=== PATIENT | female | born 1930 | race Caucasian/White ===

== ENCOUNTER 2016-05-20 08:41 | Observation (INO) | payer MEDICARE, OTHER ==
[2016-05-20] MEDS ORDERED: ASPIRIN 81 MG TABLET, CHEWABLE PO ONE (08:43)
[2016-05-20] MEDS ORDERED: DIAZEPAM INJ 10 MG/2 ML DISP.SYRIN ONE (08:56)
[2016-05-20] MEDS ORDERED: DIAZEPAM INJ 10 MG/2 ML DISP.SYRIN IV ONE (08:56)
--- NOTE | 2016-05-20 08:56 | ER Document Report ---
ED General - General Stated Complaint: CHEST PAIN Mode of Arrival: Medic Information source: Patient, Relative, Outside Facility Records Notes: 85-year-old female presents from care facility initially with concerns of chest pain when she arrives here no set is completely body aches muscle spasms. Patient denies any shortness of breath difficult to breathing. Admits to decreased hydration - HPI Onset: This morning Onset/Duration: Sudden Quality of pain: Cramping Severity: Mild Pain Level: 1 Associated symptoms: Body/muscle aches Exacerbated by: Denies Relieved by: Denies Similar symptoms previously: No Recently seen / treated by doctor: No - Related Data Allergies/Adverse Reactions: Penicillins Allergy (Verified 05/20/16 09:38) Sulfa (Sulfonamide Antibiotics) Allergy (Verified 05/20/16 09:38) Past Medical History - Social History Smoking Status: Never Smoker Cigarette use (# per day): No Chew tobacco use (# tins/day): No Smoking Education Provided: No Family History: Reviewed & Not Pertinent Review of Systems - Review of Systems Notes: REVIEW OF SYSTEMS: CONSTITUTIONAL : Denies fever, chills, or sweats. Denies recent illness. EENT: Denies eye, ear, throat, or mouth pain or symptoms. Denies nasal or sinus congestion or discharge. Denies throat, tongue, or mouth swelling or difficulty swallowing. CARDIOVASCULAR: Denies chest pain. Denies palpitations or racing or irregular heart beat. Denies ankle edema. RESPIRATORY: Denies cough, cold, or chest congestion. Denies shortness of breath, difficulty breathing, or wheezing. GASTROINTESTINAL: Denies abdominal pain or distention. Denies nausea, vomiting , or diarrhea. Denies blood in vomitus, stools, or per rectum. Denies black, tarry stools. Denies constipation. GENITOURINARY: Denies difficulty urinating, painful urination, burning, frequency, blood in urine, or discharge. FEMALE GENITOURINARY: Denies vaginal bleeding, heavy or abnormal periods, irregular periods. Denies vaginal discharge or odor. MUSCULOSKELETAL: Admits to body aches muscle aches SKIN: Denies rash, lesions or sores. HEMATOLOGIC : Denies easy bruising or bleeding. LYMPHATIC: Denies swollen, enlarged glands. NEUROLOGICAL: Denies confusion or altered mental status. Denies passing out or loss of consciousness. Denies dizziness or lightheadedness. Denies headache. Denies weakness or paralysis or loss of use of either side. Denies problems with gait or speech. Denies sensory loss, numbness, or tingling. Denies seizures. PSYCHIATRIC: Denies anxiety or stress. Denies depression, suicidal ideation, or homicidal ideation. ALL OTHER SYSTEMS REVIEWED AND NEGATIVE. Dictation was performed using [employer] voice recognition software PHYSICAL EXAMINATION: GENERAL: Well-appearing, well-nourished and in no acute distress. HEAD: Atraumatic, normocephalic. EYES: Pupils equal round and reactive to light, extraocular movements intact, conjunctiva are normal. ENT: Nares patent, oropharynx clear without exudates. Moist mucous membranes. NECK: Normal range of motion, supple without lymphadenopathy LUNGS: Breath sounds clear to auscultation bilaterally and equal. No wheezes rales or rhonchi. HEART: Regular rate and rhythm without murmurs ABDOMEN: Soft, nontender, nondistended abdomen. No guarding, no rebound. No masses appreciated. Female : deferred Musculoskeletal: Patient has obvious spasms of the left calf gastrocnemius region NEUROLOGICAL: Cranial nerves grossly intact. Normal speech, normal gait. Normal sensory, motor exams PSYCH: Normal mood, normal affect. SKIN: Warm, Dry, normal turgor, no rashes or lesions noted. Physical Exam - Vital signs Vitals: Temp Pulse Resp BP Pulse Ox 97.8 F 61 20 140/60 H 96 05/20/16 08:46 05/20/16 08:46 05/20/16 08:46 05/20/16 08:46 05/20/16 08:46 Course - Re-evaluation Re-evalutation: 05/20/16 08:56 Initial concerns for cardiac however it appears to be all musculoskeletal probable hypokalemia versus muscle spasms, patient will be given Valium 05/20/16 12:07 cardiac enzymes x1 negative, will admit for acs rule out and evalaution of leukocytosis - Vital Signs Vital signs: Temp Pulse Resp BP Pulse Ox 97.8 F 61 20 140/60 H 100 05/20/16 08:46 05/20/16 08:46 05/20/16 08:46 05/20/16 08:46 05/20/16 09:18 - Laboratory Result Diagrams: 05/20/16 09:14 05/20/16 09:14 Laboratory results interpreted by me: 05/20/16 05/20/16 09:14 09:14 WBC 17.5 H Hct 47.2 H MCHC 31.5 L RDW 14.2 H Seg Neuts % (Manual) 93 H Lymphocytes % (Manual) 2 L Abs Neuts (Manual) 16.2 H Abs Lymphs (Manual) 0.4 L BUN 22 H Est GFR (Non-Af Amer) 54 L Glucose 116 H Total Bilirubin 1.4 H Alkaline Phosphatase 133 H - Diagnostic Test Radiology reviewed: Image reviewed, Reports reviewed - EKG Interpretation by Me EKG shows normal: Sinus rhythm, [place], Intervals, QRS Complexes Discharge - Discharge Clinical Impression: Chest pain Qualifiers: Chest pain type: unspecified Qualified Code(s): R07.9 - Chest pain, unspecified Leukocytosis Qualifiers: Leukocytosis type: unspecified Qualified Code(s): D72.829 - Elevated white blood cell count, unspecified Condition: Stable Disposition: ADMITTED OBSERVATION Admitting Provider: Hospitalist Unit Admitted: Telemetry Referrals: LASHAUN CAMPBELL MD [Primary Care Provider] - Follow up as needed
[2016-05-20 09:31] LABS: HEMATOCRIT 47.2 % (36.0-47.0); HEMOGLOBIN 14.9 g/dL (12.0-15.5); HGB HCT DIFFERENCE -2.5; MEAN CORPUSCULAR HEMOGLOBIN 30.2 pg (27.0-33.4); MEAN CORPUSCULAR HGB CONC 31.5 g/dL (32.0-36.0); MEAN CORPUSCULAR VOLUME 96 fl (80-97); RED BLOOD COUNT 4.93 10^6/uL (3.72-5.28); RED CELL DISTRIBUTION WIDTH 14.2 % (11.5-14.0); WHITE BLOOD COUNT 17.5 10^3/uL (4.0-10.5)
[2016-05-20 09:41] LABS: ALANINE AMINOTRANSFERASE 26 U/L (9-52); ALBUMIN 4.7 g/dL (3.5-5.0); ALKALINE PHOSPHATASE 133 U/L (38-126); ANION GAP 16 (5-19); ASPARTATE AMINO TRANSFERASE 33 U/L (14-36); BILIRUBIN,TOTAL 1.4 mg/dL (0.2-1.3); BLOOD UREA NITROGEN 22 mg/dL (7-20); CARBON DIOXIDE 22 mmol/L (22-30); CHLORIDE 103 mmol/L (98-107); CREATINE KINASE 72 U/L (30-135); CREATININE RESULT 0.97 mg/dL (0.52-1.25); GLUCOSE 116 mg/dL (75-110); POTASSIUM 4.7 mmol/L (3.6-5.0); SODIUM 140.9 mmol/L (137-145); TOTAL PROTEIN 7.6 g/dL (6.3-8.2)
[2016-05-20 09:52] LABS: CREATINE KINASE MB 2.32 ng/mL (<4.55)
[2016-05-20 09:58] LABS: TROPONIN I < 0.012 ng/mL
[2016-05-20 10:05] LABS: LYMPHOCYTES % (MANUAL) 2 % (13-45); TOTAL CELLS COUNTED 100
[2016-05-20 10:06] LABS: BASOPHILS % (MANUAL) 0 % (0-2); EOSINOPHILS % (MANUAL) 0 % (0-6); OVALOCYTES SLIGHT; POIKILOCYTOSIS SLIGHT
[2016-05-20 10:07] LABS: POLYCHROMASIA SLIGHT; TOXIC GRANULATION SLIGHT
[2016-05-20] MEDS ORDERED: CEFTRIAXONE INJ 1000 MG VIAL IV ONE (12:06)
[2016-05-20 12:16] LABS: APPEARANCE,URINE TURBID; BILIRUBIN,URINE NEGATIVE (NEGATIVE); GLUCOSE, URINE NEGATIVE (NEGATIVE); KETONES,URINE NEGATIVE (NEGATIVE); LEUKOCYTE ESTERASE,URINE NEGATIVE (NEGATIVE); NITRITE,URINE NEGATIVE (NEGATIVE); PROTEIN,URINE 100 mg/dL (NEGATIVE); URINE SPECIFIC GRAVITY 1.021; UROBILINOGEN,URINE NEGATIVE mg/dL (<2.0)
[2016-05-20] MEDS ORDERED: CEFTRIAXONE 1 GM/D5W RTU 1 GM/50 ML RTUPB IV ONE (12:43)
[2016-05-20] MEDS ORDERED: LORAZEPAM 0.5 MG TABLET PO PRN (14:14)
[2016-05-20] MEDS ORDERED: ENOXAPARIN SODIUM INJ 30 MG/0.3 ML DISP.SYRIN SUBCUT ONE (14:30)
--- NOTE | 2016-05-20 14:36 | PDOC H&P ---
History of Present Illness Admission Date/PCP: 05/20/16 12:14 LASHAUN CAMPBELL MD Patient complains of: chest pain History of Present Illness: ROLF VALENZUELA is a 85 year old female resident at [facility] was brought to the ED after she complained of chest pain Patient has dementia and has no recollection of anything She denies any SOB or chest pain Daughter present at bedside was not present at the time Patient was evaluated in the ED ; She had a normal EKG and normal cardiac [place] [id number] with a shift to the left without fever or focus of infection Patient was admitted to telemetry and received Ceftriaxone IV Past Medical History Cardiac Medical History: Reports: Hypertension GI Medical History: Reports: Gastroesophageal Reflux Disease Psychiatric Medical History: Reports: Depression, Other - dementia Social History Smoking Status: Never Smoker - Advance Directive Resuscitation Status: Do Not Resuscitate Surrogate healthcare decision maker:: daughter Ann Schultz Family History Parental Family History Reviewed: No Children Family History Reviewed: No Sibling(s) Family History Reviewed.: No Medication/Allergy Home Medications: Biotin 1,000 mcg PO DAILY 05/20/16 Celecoxib [Celebrex 200 mg Capsule] 200 mg PO DAILY 05/20/16 Cholecalciferol (Vitamin D3) [Vitamin D3 1000 Unit Tablet] 1,000 units PO DAILY 05/20/16 Cyanocobalamin (Vitamin B-12) [Vitamin B-12 1000 mcg Tablet] 1,000 mcg PO DAILY 05/20/16 Dimethicone [Cerave] See Protocol TOP DAILY 05/20/16 Donepezil HCl [Aricept] 10 mg PO DAILY 05/20/16 Escitalopram Oxalate [Lexapro 10 mg Tablet] 10 mg PO DAILY 05/20/16 Ketotifen Fumarate [Refresh] 1 drop OU QID 05/20/16 Lansoprazole [Prevacid] 30 mg PO BID 05/20/16 Levothyroxine Sodium [Tirosint] 88 mcg PO QAM 05/20/16 Lisinopril [Prinivil 5 mg Tablet] 5 mg PO DAILY 05/20/16 Loratadine [Claritin 10 mg Tablet] 10 mg PO DAILY 05/20/16 Lorazepam [Ativan 0.5 mg Tablet] 0.5 mg PO Q12HP PRN 05/20/16 Mag Hydrox/Al Hydrox/Simeth [Maalox Plus Susp 30 Udcup] 30 ml PO Q6HP PRN Memantine HCl [Namenda Xr] 28 mg PO TID 05/20/16 Mineral Oil/Petrolatum,White [Artificial Tears Eye Ointment] 1 strip OU BID Simethicone [Mylanta] 0 mg PO DAILY 05/20/16 Simethicone [Mylanta] 0 mg PO DAILY 05/20/16 Tramadol HCl 50 mg PO BID 05/20/16 Allergies/Adverse Reactions: Penicillins Allergy (Verified 05/20/16 09:38) Sulfa (Sulfonamide Antibiotics) Allergy (Verified 05/20/16 09:38) Review of Systems ROS unobtainable: Due to mental status - severe dementia does not answer questions appropriatly Physical Exam Vital Signs: Temp Pulse Resp BP Pulse Ox 98.6 F 116 H 21 H 127/80 H 99 05/20/16 13:23 05/20/16 13:23 05/20/16 14:01 05/20/16 14:01 05/20/16 14:01 General appearance: PRESENT: no acute distress, well-developed, well-nourished Head exam: PRESENT: atraumatic, normocephalic Eye exam: PRESENT: conjunctiva pink, EOMI, PERRLA. ABSENT: scleral icterus Ear exam: PRESENT: normal external ear exam Mouth exam: PRESENT: moist, tongue midline Neck exam: ABSENT: carotid bruit, JVD, lymphadenopathy, thyromegaly Respiratory exam: PRESENT: clear to auscultation ronine. ABSENT: rales, rhonchi, wheezes Cardiovascular exam: PRESENT: RRR. ABSENT: diastolic murmur, rubs, systolic murmur Pulses: PRESENT: normal dorsalis pedis pul Vascular exam: PRESENT: normal capillary refill GI/Abdominal exam: PRESENT: normal bowel sounds, soft. ABSENT: distended, guarding, mass, organolmegaly, rebound, tenderness Rectal exam: PRESENT: deferred Extremities exam: PRESENT: full ROM. ABSENT: calf tenderness, clubbing, pedal edema Neurological exam: PRESENT: awake, CN II-XII grossly intact. ABSENT: oriented to place, oriented to time, motor sensory deficit Psychiatric exam: PRESENT: appropriate affect, normal mood. ABSENT: homicidal ideation, suicidal ideation Skin exam: PRESENT: dry, intact, warm. ABSENT: cyanosis, rash Results Impressions: Chest X-Ray 05/20/16 08:44 IMPRESSION: NO ACUTE RADIOGRAPHIC FINDING IN THE CHEST. Assessment & Plan - Diagnosis (1) Dementia Qualifiers: Dementia type: unspecified type Dementia behavioral disturbance: without behavioral disturbance Qualified Code(s): F03.90 - Unspecified dementia without behavioral disturbance Is this a current diagnosis for this admission?: YesPlan: continue present meds will have sitter if patient becomes agitated later (2) Hypertension Qualifiers: Hypertension type: essential hypertension Qualified Code(s): I10 - Essential (primary) hypertension Is this a current diagnosis for this admission?: YesPlan: controlled continue lisinopril (3) Chest pain Qualifiers: Chest pain type: unspecified Qualified Code(s): R07.9 - Chest pain, unspecified Is this a current diagnosis for this admission?: YesPlan: monitor overnite i telemetry unit serial enzymes repeat EKG in am - Time Time Spent: 50 to 70 Minutes - Inpatient Certification Based on my medical assessment, after consideration of the patient's comorbidities, presenting symptoms, or acuity I expect that the services needed warrant INPATIENT care.: No I certify that my determination is in accordance with my understanding of Medicare's requirements for reasonable and necessary INPATIENT services [42 CFR 412.3e].: Yes
[2016-05-20] MEDS ORDERED: (PENDING PHARMACY ID) (Ketotifen Fumarate [Refresh] 1 DROP) OU SCH ×2 (16:29→18:00)
[2016-05-20] MEDS ORDERED: (PENDING PHARMACY ID) (Memantine Hcl [Namenda Xr] 28 MG) PO SCH (16:29)
[2016-05-20] MEDS ORDERED: BIOTIN 1000 MCG PO SCH (16:29)
[2016-05-20] MEDS ORDERED: DONEPEZIL HCL 5 MG TABLET PO SCH (18:00)
[2016-05-20] MEDS ORDERED: (PENDING PHARMACY ID) (Lansoprazole [Prevacid] 30 MG) PO SCH (18:00)
[2016-05-20] MEDS ORDERED: CHOLECALCIFEROL (D3) 1,000 UNIT TABLET PO SCH (18:00)
[2016-05-20] MEDS ORDERED: LISINOPRIL 5 MG TABLET PO SCH (18:00)
[2016-05-20] MEDS ORDERED: ESCITALOPRAM OXALATE 10 MG TABLET PO SCH (18:00)
[2016-05-20] MEDS ORDERED: LORATADINE 10 MG TABLET PO SCH (18:00)
[2016-05-20] MEDS ORDERED: CYANOCOBALAMIN (VITAMIN B-12) 1,000 MCG TABLET PO SCH (18:00)
[2016-05-20] MEDS ORDERED: CELECOXIB 200 MG CAPSULE PO SCH (18:00)
[2016-05-20] MEDS: LANSOPRAZOLE 30 MG TAB.RAP.DR PO SCH (18:13)
--- NOTE | 2016-05-20 18:59 | EKG REPORT ---
SEVERITY:- ABNORMAL ECG - SINUS RHYTHM BORDERLINE INFERIOR Q WAVES ABNORMAL T, CONSIDER ISCHEMIA, LATERAL LEADS : Confirmed by: Yo West MD 20-May-2016 18:58:12
[2016-05-20] MEDS ORDERED: ONDANSETRON HCL INJ/PF 4 MG/2 ML SDV IV PRN (20:36)
[2016-05-20] MEDS ORDERED: RISPERIDONE 0.5 MG TAB.RAPDIS PO ONE (21:00)
[2016-05-20] MEDS ORDERED: TRAMADOL HCL 50 MG TABLET PO ONE ×2 (21:00)
[2016-05-20] MEDS ORDERED: ONDANSETRON HCL INJ/PF 4 MG/2 ML SDV IV ONE (21:30)
[2016-05-20] MEDS: MEMANTINE HCL 10 MG TABLET PO SCH (21:31)
[2016-05-20] MEDS ORDERED: LACTULOSE SYRUP 20 GM/30 ML UDCUP PO ONE (23:00)
[2016-05-21] MEDS ORDERED: RINGERS SOLUTION,LACTATED 1,000 ML IV ONE (01:00)
[2016-05-21] MEDS ORDERED: NORMAL SALINE 1000 ML 1,000 ML IV ONE (02:15)
[2016-05-21] MEDS: LANSOPRAZOLE 30 MG TAB.RAP.DR PO SCH (05:38)
[2016-05-21] MEDS ORDERED: LEVOTHYROXINE SODIUM 0.088 MG TABLET PO SCH ×2 (06:00)
[2016-05-21 06:58] LABS: ABSOLUTE BASOPHILS # (AUTO) 0.1 10^3/uL (0.0-0.2); ABSOLUTE EOSINOPHILS # (AUTO) 0.1 10^3/uL (0.0-0.6); ABSOLUTE LYMPHOCYTES (AUTO) 1.3 10^3/uL (0.5-4.7); ABSOLUTE MONOCYTES (AUTO) 1.1 10^3/uL (0.1-1.4); ABSOLUTE NEUT (AUTO) 6.4 10^3/uL (1.7-8.2); BASOPHILS % (AUTO) 0.7 % (0-2); EOSINOPHILS % (AUTO) 1.2 % (0-6); HEMATOCRIT 39.6 % (36.0-47.0); HEMOGLOBIN 12.9 g/dL (12.0-15.5); HGB HCT DIFFERENCE -0.9; LYMPHOCYTES % (AUTO) 14.4 % (13-45); MEAN CORPUSCULAR HGB CONC 32.5 g/dL (32.0-36.0); MEAN CORPUSCULAR VOLUME 95 fl (80-97); MONOCYTES % (AUTO) 12.5 % (3-13); RED BLOOD COUNT 4.16 10^6/uL (3.72-5.28); RED CELL DISTRIBUTION WIDTH 14.3 % (11.5-14.0); SEGMENTED NEUTROPHILS % (AUTO) 71.2 % (42-78)
[2016-05-21 07:16] LABS: CHOLESTEROL 155.46 mg/dL (0-200); Direct HDL 49 mg/dL (>40); TRIGLYCERIDES 67 mg/dL (<150)
[2016-05-21 07:26] LABS: DIRECT LDL 91 mg/dL (<100)
[2016-05-21] MEDS ORDERED: ENOXAPARIN SODIUM INJ 30 MG/0.3 ML DISP.SYRIN SUBCUT SCH (08:00)
[2016-05-21] MEDS ORDERED: LEVOTHYROXINE SODIUM 88 MCG PO SCH (08:00)
--- NOTE | 2016-05-21 08:10 | EKG REPORT ---
SEVERITY:- ABNORMAL ECG - SINUS RHYTHM BORDERLINE INFERIOR Q WAVES NONSPECIFIC T ABNORMALITIES, LATERAL LEADS : Confirmed by: Yo West MD 21-May-2016 08:09:43
[2016-05-21] MEDS ORDERED: ESCITALOPRAM OXALATE 10 MG TABLET PO SCH (10:00)
[2016-05-21] MEDS ORDERED: (PENDING PHARMACY ID) (Donepezil Hcl [Aricept] 10 MG) PO SCH (10:00)
[2016-05-21] MEDS ORDERED: (PENDING PHARMACY ID) (Memantine Hcl [Namenda Xr] 28 MG) PO SCH (10:00)
[2016-05-21] MEDS ORDERED: CHOLECALCIFEROL (D3) 1,000 UNIT TABLET PO SCH (10:00)
[2016-05-21] MEDS ORDERED: LISINOPRIL 5 MG TABLET PO SCH (10:00)
[2016-05-21] MEDS ORDERED: DONEPEZIL HCL 5 MG TABLET PO SCH (10:00)
[2016-05-21] MEDS ORDERED: CYANOCOBALAMIN (VITAMIN B-12) 1,000 MCG TABLET PO SCH (10:00)
[2016-05-21] MEDS ORDERED: BIOTIN 1000 MCG PO SCH (10:00)
[2016-05-21] MEDS ORDERED: TRAMADOL HCL 50 MG TABLET PO SCH (10:00)
[2016-05-21] MEDS ORDERED: RISPERIDONE 0.5 MG TAB.RAPDIS PO SCH (10:00)
[2016-05-21] MEDS ORDERED: CELECOXIB 200 MG CAPSULE PO SCH (10:00)
[2016-05-21] MEDS ORDERED: LORATADINE 10 MG TABLET PO SCH (10:00)
[2016-05-21] MEDS: MEMANTINE HCL 10 MG TABLET PO SCH (10:27)
--- NOTE | 2016-05-21 10:45 | PDOC DISCHARGE SUMMARY ---
General - Admit/Disc Date/PCP Admission Date/Primary Care Provider: 05/20/16 14:10 LASHAUN CAMPBELL MD Discharge Date: 05/21/16 - Discharge Diagnosis (1) Dementia Is this a current diagnosis for this admission?: YesSummary: Patient was agitated with sundowning at night We added Risperdal 0.5 mg by mouth daily at bedtime Patient was on Namenda XR are 28 mg 3 times a day on the list of medications We decreased it to once a day which is a dosage recommended in up-to-date (2) Hypertension Is this a current diagnosis for this admission?: YesSummary: Was controlled (3) Chest pain Is this a current diagnosis for this admission?: YesSummary: Upon admission patient had normal EKG; negative enzymes Repeat troponins were negative EKG was normal and unchanged She was monitored and did not have any cardiac arrhythmia She had no complaints of chest pain there was no evidence of an acute coronary syndrome (4) Leukocytosis Is this a current diagnosis for this admission?: YesSummary: Leukocytosis on admission was likely to be secondary to mild dehydration It did resolve Repeat white blood count at discharge is 9 There was no evidence of UTI and or pneumonia Urine culture was negative 2 blood cultures are pending results at discharge - Additional Information Resuscitation Status: Do Not Resuscitate Discharge Diet: As Tolerated Discharge Activity: Activity As Tolerated Home Medications: Biotin 1,000 mcg PO DAILY 05/20/16 Celecoxib [Celebrex 200 mg Capsule] 200 mg PO DAILY 05/20/16 Cholecalciferol (Vitamin D3) [Vitamin D3 1000 Unit Tablet] 1,000 units PO DAILY 05/20/16 Cyanocobalamin (Vitamin B-12) [Vitamin B-12 1000 mcg Tablet] 1,000 mcg PO DAILY 05/20/16 Dimethicone [Cerave] See Protocol TOP DAILY 05/20/16 Donepezil HCl [Aricept] 10 mg PO DAILY 05/20/16 Escitalopram Oxalate [Lexapro 10 mg Tablet] 10 mg PO DAILY 05/20/16 Ketotifen Fumarate [Refresh] 1 drop OU QID 05/20/16 Lansoprazole [Prevacid] 30 mg PO BID 05/20/16 Levothyroxine Sodium [Tirosint] 88 mcg PO QAM 05/20/16 Lisinopril [Prinivil 5 mg Tablet] 5 mg PO DAILY 05/20/16 Lorazepam [Ativan 0.5 mg Tablet] 0.5 mg PO Q12HP PRN 05/20/16 Mag Hydrox/Al Hydrox/Simeth [Maalox Plus Susp 30 Udcup] 30 ml PO Q6HP PRN Mineral Oil/Petrolatum,White [Artificial Tears Eye Ointment] 1 strip OU BID Simethicone [Mylanta] 0 mg PO DAILY 05/20/16 Simethicone [Mylanta] 0 mg PO DAILY 05/20/16 Tramadol HCl 50 mg PO BID 05/20/16 Memantine HCl [Namenda Xr] 28 mg PO DAILY #0 05/21/16 Risperidone [Risperdal M-Tab 0.5 mg Odt Tablet] 0.5 mg PO QHS #30 tab.rapdis History of Present Illness Patient complains of: chest pain History of Present Illness: ROLF VALENZUELA is a 85 year old female resident at [facility] was brought to the ED after she complained of chest pain Patient has dementia and has no recollection of anything She denies any SOB or chest pain Daughter present at bedside was not present at the time Patient was evaluated in the ED ; She had a normal EKG and normal cardiac [place] [address] with a shift to the left without fever or focus of infection Patient was admitted to telemetry and received Ceftriaxone IV Hospital Course Hospital Course: see above Physical Exam Vital Signs: Temp Pulse Resp BP Pulse Ox 98.3 F 75 18 113/52 L 100 05/21/16 03:46 05/21/16 07:00 05/21/16 03:46 05/21/16 03:46 05/21/16 03:46 Intake & Output 05/20/16 05/21/16 05/22/16 00:59 00:59 00:59 Intake Total 220 1000 Balance 220 1000 Weight 64.3 kg Results Laboratory Results: 05/21/16 06:12 05/21/16 05/21/16 05/21/16 06:12 06:12 06:12 WBC 9.0 RBC 4.16 Hgb 12.9 Hct 39.6 MCV 95 MCH 31.0 MCHC 32.5 RDW 14.3 H Plt Count 226 Seg Neutrophils % 71.2 Lymphocytes % 14.4 Monocytes % 12.5 Eosinophils % 1.2 Basophils % 0.7 Absolute Neutrophils 6.4 Absolute Lymphocytes 1.3 Absolute Monocytes 1.1 Absolute Eosinophils 0.1 Absolute Basophils 0.1 Triglycerides 67 Cholesterol 155.46 LDL Cholesterol Direct 91 VLDL Cholesterol 13.0 HDL Cholesterol 49 TSH 3.25 05/20/16 05/20/16 05/21/16 14:36 20:40 02:50 Troponin I 0.014 0.020 0.013 05/20/16 14:36 Blood Culture - Pending Blood 05/20/16 12:53 Blood Culture - Pending Blood 05/20/16 10:25 Urine Culture - Preliminary Catheterized Urine NO GROWTH IN 1 DAY Impressions: Chest X-Ray 05/20/16 08:44 IMPRESSION: NO ACUTE RADIOGRAPHIC FINDING IN THE CHEST. Abdomen X-Ray 05/20/16 20:36 IMPRESSION: NO RADIOGRAPHIC EVIDENCE FOR ACUTE ABDOMINAL DISEASE. Plan Discharge Plan: Patient will return to assisted living Time Spent: Less than 30 Minutes
[2016-05-21] MEDS ORDERED: LOPERAMIDE HCL 2 MG CAPSULE PO ONE (11:30)
[2016-05-21 13:23] VITALS: BP 129/45
== END 2016-05-21 16:03 ==
LOC: ER 08:41 → EH 12:14 → UNDOADMOB 12:14 → EH 14:10 → 4N 16:42
PROVIDERS: ADMIT Emergency Medicine; ATTEND Emergency Medicine
DX: R07.9 Chest pain, unspecified (principal); I10 Essential (primary) hypertension; F03.90 Unspecified dementia, unspecified severity, without behavioral disturbance, psychotic disturbance, mood disturbance, and anxiety; D72.829 Elevated white blood cell count, unspecified; K21.9 Gastro-esophageal reflux disease without esophagitis
CPT/HCPCS: 93005 ×2; 99285; 51701; 96375; 96365; 36415 ×2; 87040; 87086; 82553; 82550; 84443; 85025 ×2; 80053; 81001; 84484 ×2; 80061; 74020; 71010; 93010 ×2; G0378 ×3; A9270 ×18; J3360; J2405; J1650; J7030; J0696; J3490

== ENCOUNTER 2018-02-15 16:25 | Emergency (ER) | payer MEDICARE, OTHER ==
[2018-02-15 16:40] VITALS: BP 176/72
[2018-02-15] MEDS ORDERED: HYDROCODONE/ACETAMINOPHEN 5-325 MG TABLET PO ONE (17:14)
--- NOTE | 2018-02-15 17:18 | ER Document Report ---
ED Fall - General Chief Complaint: Fall Injury Stated Complaint: FALL/RIB PAIN Time Seen by Provider: 02/15/18 17:13 Mode of Arrival: Ambulatory Information source: Patient Notes: Chief complaint: Right chest wall pain History of complain:( obtained from----patient) 87 years old female presents today with a fall 3 days ago and complaining of pain over the right lateral chest wall. Particularly when taking a deep breath or changing position. She lives in an Alzheimer[facility] unit. No one has witnessed the fall. Onset: As above Duration: 3 days Severity: Moderate to severe Quality: Sharp Context: As above Exacerbating factor and relieving factors: Change of position REVIEW OF SYSTEMS: CONSTITUTIONAL : Denies fever, chills, or sweats. Denies recent illness. EENT: Denies eye, ear, throat, or mouth pain or symptoms. Denies nasal or sinus congestion or discharge. Denies throat, tongue, or mouth swelling or difficulty swallowing. CARDIOVASCULAR: Denies chest pain. Denies palpitations or racing or irregular heart beat. Denies ankle edema. RESPIRATORY: Denies cough, cold, or chest congestion. Denies shortness of breath, difficulty breathing, or wheezing. GASTROINTESTINAL: Denies distention. Denies nausea, vomiting, or diarrhea. Denies blood in vomitus, stools, or per rectum. Denies black, tarry stools. Denies constipation. GENITOURINARY: Denies difficulty urinating, painful urination, burning, frequency, blood in urine, or discharge. FEMALE GENITOURINARY: Denies vaginal bleeding, heavy or abnormal periods, irregular periods. Denies vaginal discharge or odor. MUSCULOSKELETAL: Denies back or neck pain or stiffness. Denies joint pain or swelling. SKIN: Denies rash, lesions or sores. HEMATOLOGIC : Denies easy bruising or bleeding. LYMPHATIC: Denies swollen, enlarged glands. NEUROLOGICAL: Denies confusion or altered mental status. Denies passing out or loss of consciousness. Denies dizziness or lightheadedness. Denies headache. Denies weakness or paralysis or loss of use of either side. Denies problems with gait or speech. Denies sensory loss, numbness, or tingling. Denies seizures. PSYCHIATRIC: Denies anxiety or stress. Denies depression, suicidal ideation, or homicidal ideation. ALL OTHER SYSTEMS REVIEWED AND NEGATIVE. PHYSICAL EXAMINATION: GENERAL: Well-appearing, well-nourished and in mild acute distress. Pleasant female HEAD: Atraumatic, normocephalic. EYES: Pupils equal round and reactive to light, extraocular movements intact, conjunctiva are normal. ENT: Nares patent, oropharynx clear without exudates. Moist mucous membranes. NECK: Normal range of motion, supple without lymphadenopathy LUNGS: Breath sounds clear to auscultation bilaterally and equal. No wheezes rales or rhonchi. HEART: Regular rate and rhythm without murmurs Chest wall-right chest wall at the posterior axillary line along posterior axillary line blackish blue discoloration and tenderness noted. ABDOMEN: Soft, nontender, nondistended abdomen. No guarding, no rebound. No masses appreciated. Examination of genitals-deferred Musculoskeletal: Normal range of motion, no pitting or edema. No cyanosis. NEUROLOGICAL: Cranial nerves grossly intact. Normal speech, normal gait. Normal sensory, motor exams PSYCH: Normal mood, normal affect. SKIN: Warm, Dry, normal turgor, no rashes or lesions noted. Dictation was performed using [employer] voice recognition software TRAVEL OUTSIDE OF THE [place] IN LAST 30 DAYS: No - HPI Notes: Dictated - Related data Allergies/Adverse Reactions: Penicillins Allergy (Verified 02/15/18 16:28) Sulfa (Sulfonamide Antibiotics) Allergy (Verified 02/15/18 16:28) Past Medical History - Social History Smoking Status: Never Smoker Frequency of alcohol use: None Drug Abuse: None Lives with: [facility] Family History: Reviewed & Not Pertinent - Past Medical History Cardiac Medical History: Reports: Hx Hypertension GI Medical History: Reports: Hx Gastroesophageal Reflux Disease Psychiatric Medical History: Reports: Hx Depression Review of Systems - Review of Systems Notes: Dictated Physical Exam - Vital signs Vitals: Temp Pulse Resp BP Pulse Ox 97.9 F 79 16 176/72 H 94 02/15/18 16:38 02/15/18 16:38 02/15/18 16:38 02/15/18 16:38 02/15/18 16:38 - Notes Notes: Dictated Course - Vital Signs Vital signs: Temp Pulse Resp BP Pulse Ox 97.9 F 79 16 176/72 H 94 02/15/18 16:38 02/15/18 16:38 02/15/18 16:38 02/15/18 16:38 02/15/18 16:38 - Diagnostic Test Radiology reviewed: Reports reviewed - CT of the chest was reported by radiologist unremarkable no fractures Discharge - Discharge Clinical Impression: Fall Qualifiers: Encounter type: initial encounter Qualified Code(s): W19.XXXA - Unspecified fall, initial encounter Chest wall contusion Qualifiers: Encounter type: initial encounter Laterality: right Qualified Code(s): S20.211A - Contusion of right front wall of thorax, initial encounter Condition: Fair Disposition: HOME, SELF-CARE Instructions: Chest Wall Pain ([facility]) Prescriptions: Hydrocodone/Acetaminophen [[place] 5-325 mg Tablet] 1 tab PO TID #14 tablet Referrals: LASHAUN CAMPBELL MD [Primary Care Provider] - Follow up as needed
--- NOTE | 2018-02-15 17:46 | RADIOLOGY REPORT (SQ) ---
EXAM DESCRIPTION: CT CHEST WITHOUT COMPLETED DATE/TIME: 02/15/2018 5:30 pm REASON FOR STUDY: Chest wall injury COMPARISON: None. TECHNIQUE: CT scan performed of the chest without intravenous contrast. Images reviewed with lung, soft tissue and bone windows. Reconstructed coronal and sagittal MPR images reviewed. All images st ored on PACS. All CT scanners at this facility use dose modulation, iterative reconstruction, and/or weight based d osing when appropriate to reduce radiation dose to as low as reasonably achievable (ALARA). [facility]: Dose Right [facility]: CareDose [facility]: Dose Right [facility]: Teradose 4D [facility]: [employer] RADIATION DOSE: CT Rad equipment meets quality standard of care and radiation dose reduction techniq ues were employed. CTDIvol: 4.8 mGy. DLP: 158 mGy-cm. mGy. LIMITATIONS: No technical limitations. FINDINGS: LUNGS AND PLEURA: No masses, infiltrates, or pneumothorax. No pleural effusions or pleura l calcifications. HILAR AND MEDIASTINAL STRUCTURES: No identified masses or abnormal nodes. No obvious aneurysm. HEART AND VASCULAR STRUCTURES: No aneurysm. No pericardial effusion. UPPER ABDOMEN: No significant findings. Limited exam. THYROID AND OTHER SOFT TISSUES: No masses. No adenopathy. BONES: No significant finding. HARDWARE: None in the chest. OTHER: No other significant findings. IMPRESSION: No acute findings in the thorax. TECHNICAL DOCUMENTATION: JOB ID: [id number] Quality ID # [id number]: Final reports with documentation of one or more dose reduction techniques (e.g., Au tomated exposure control, adjustment of the mA and/or kV according to patient size, use of iterative reconstruction technique) 2010 [facility] [employer] [employer]- All Rights Reserved Reading location - IP/workstation name: [email or web address]
== END 2018-02-15 18:19 | disposition home or self-care (01) ==
LOC: ER 16:25
DX: S20.211A Contusion of right front wall of thorax, initial encounter (principal); R07.89 Other chest pain; R07.81 Pleurodynia; W19.XXXA Unspecified fall, initial encounter; I10 Essential (primary) hypertension
CPT/HCPCS: 99283; 71250; A9270